=== PATIENT | female | born 2000 | race Caucasian/White ===

== ENCOUNTER 2023-04-23 13:31 | Emergency (ER) | payer OTHER ==
[~2023-04-23] VITALS: Ht 152.4 cm; Wt 59.0 kg
[2023-04-23 13:48] VITALS: BP 126/75; PULSE 90; RESP 18; TEMP 98; O2SAT 98
[2023-04-23] MEDS ORDERED: KETOROLAC 60 MG/2 ML VIAL IM ONE (15:05)
[2023-04-23] MEDS ORDERED: IBUP-2213 PO (15:05)
== END 2023-04-23 15:09 | disposition home or self-care (01) ==
LOC: MED 13:31
DX: S09.90XA Unspecified injury of head, initial encounter (principal); R11.2 Nausea with vomiting, unspecified; F12.90 Cannabis use, unspecified, uncomplicated; F17.200 Nicotine dependence, unspecified, uncomplicated; Z88.0 Allergy status to penicillin; Z88.2 Allergy status to sulfonamides; Z79.899 Other long term (current) drug therapy; X58.XXXA Exposure to other specified factors, initial encounter; Y93.89 Activity, other specified; Y92.89 Other specified places as the place of occurrence of the external cause; Y99.8 Other external cause status
CPT/HCPCS: 70450; 99284